=== PATIENT | female | born 1995 | race Caucasian/White ===

== ENCOUNTER 2017-12-21 06:49 | Outpatient (CLI) | payer OTHER ==
[2017-12-21] MEDS ORDERED: LACTATED RINGERS 1,000 ML IV SCH (07:30)
[2017-12-21] MEDS ORDERED: ACETAMINOPHEN IV (For NPO) 1,000 MG in EMPTY BAG 1 BAG IVPB STA (07:31)
[2017-12-21 08:07] VITALS: BP 111/57; PULSE 97; RESP 22; TEMP 98
--- NOTE | 2018-01-22 12:36 | P.MSEPDOC ---
Presenting Problems - Arrival Data Date of Arrival on Unit: 12/21/17 Time of Arrival on Unit: 06:49 Mode of Transport: Wheelchair - Complaint OB-Reason for Admission/Chief Complaint: Other Comment: Chills, N/V, YODER, Sunburn, possible sun posioning. Medical History - Information : 2 Para: 0 Term: 0 : 0 Abortions: Spontaneous or Elective: 1 Number of Living Children: 0 - Gestational Age Gestational Age by TERELL (wks/days): 29 Weeks and 0 Days Review of Systems - Review of Systems Constitutional: No problems Breast: No problems ENT: No problems Cardiovascular: No problems Respiratory: No problems Gastrointestinal: Pain Genitourinary: No problems Musculoskeletal: No problems Neurological: No problems Comment: sunburn, N/V, chills Vital Signs - Temperature Temperature: 98.0 F Temperature Source: Oral - Pulse Right Pulse Rate: 97 Pulse Assessment Method: Pulse Oximetry - Respirations Respiratory Rate: 22 Oxygen Delivery Method: Room Air O2 Sat by Pulse Oximetry: 100 - Blood Pressure Right Arm Blood Pressure: 111/57 Blood Pressure Mean: 75 Blood Pressure Source: Automatic Cuff Medical Screen Scoring (Pre) - Cervical Exam Dilation: Exam Deferred Effacement: Exam Deferred Membranes: Intact - Uterine Contractions Frequency: N/A Duration: N/A Intensity: N/A - Maternal Vital Signs Maternal Temperature: N/A Maternal Blood Pressure: N/A Signs of Preeclampsia: Headache = 1, Nausea/Vomiting = 1 Maternal Respirations: N/A - Pain Assessment Pain Location and Character: Generalized Pain Scale Used: Numeric (1 - 10) Pain Intensity: 6 Pain Management Goal: 0 Pain Description: *Acute, Burning, Tender, Throbbing Pain Frequency: Intermittent Pain Duration Units: Hours Pain Behavior: Vocalization Pharmacological Interventions: PRN Medication Non-Pharmacological Interventions: Darkened Room, Distraction, Relaxation Technique - Maternal Trauma Maternal Trauma: N/A - Assessment Baseline FHR: 150 Heart Rate - NICHD Category: Category I (Normal) = 0 NST: Reactive Position: N/A Station: N/A - Total Score Total Score (Pre): 2 - Level of Risk Level of Risk: Low (0-5) Physician Notification (Pre) - Physician Notified Physician Notified Date: 12/21/17 Physician Notified Time: 07:10 Physician/Practitioner Notifed:: Dr. Quiroz Spoke With: Dr. Quiroz New Order Received: Yes - Notification Comment Comment: orders for 1 liter fluid, Ovfirmev, and reactive NST. Report with update before sending to ER. Medical Screen Scoring (Post) - Cervical Exam Dilation: Exam Deferred Effacement: Exam Deferred Membranes: Intact - Uterine Contractions Duration: N/A Intensity: N/A - Maternal Vital Signs Maternal Temperature: N/A Maternal Blood Pressure: N/A Signs of Preeclampsia: N/A Maternal Respirations: N/A - Pain Assessment Pain Location and Character: Anterior, Medial, Head, Shoulder Pain Scale Used: Numeric (1 - 10) - Total Score Total Score (Post): 0 Disposition - Disposition Discharge Date: 12/21/17 Discharge Time: 09:20 I agree with the RN Medical Screening Exam: Yes Risk & Benefit of care provided described in d/c instruction: Yes Diagnosis: RELATED CONDITIONS, UNSPECIFIED, THIRD TRIMESTER
== END 2017-12-21 09:20 | disposition home or self-care (01) ==
LOC: FBPOP 06:49
PROVIDERS: ATTEND Obstetrics & Gynecology Obstetrics
DX: O26.93 Pregnancy related conditions, unspecified, third trimester (principal); Z3A.29 29 weeks gestation of pregnancy
CPT/HCPCS: 59025; 96360; 96361; 96367; G0463; J0131; 96376; 99214

== ENCOUNTER 2018-02-12 15:25 | Outpatient (CLI) | payer OTHER ==
[2018-02-12 16:07] VITALS: BP 118/73; PULSE 82; RESP 18; TEMP 99
--- NOTE | 2018-02-14 11:35 | P.MSEPDOC ---
Presenting Problems - Arrival Data Date of Arrival on Unit: 02/12/18 Time of Arrival on Unit: 15:43 Mode of Transport: Wheelchair - Complaint OB-Reason for Admission/Chief Complaint: Vaginal Bleeding Comment: pt arrived c/o bleeding times once when she strained to go o the bathroom . no active bleeding at this time Medical History - Information : 2 Para: 0 Term: 0 : 0 Abortions: Spontaneous or Elective: 1 Number of Living Children: 0 - Gestational Age Gestational Age by TERELL (wks/days): 36 Weeks and 4 Days Review of Systems - Review of Systems Constitutional: No problems Breast: No problems ENT: No problems Cardiovascular: No problems Respiratory: No problems Gastrointestinal: No problems Genitourinary: No problems Musculoskeletal: No problems Neurological: No problems Skin: No problems Vital Signs - Temperature Temperature: 99 F Temperature Source: Oral - Pulse Right Brachial Pulse Rate: 82 Pulse Assessment Method: Automatic Cuff - Respirations Respiratory Rate: 18 Oxygen Delivery Method: Room Air O2 Sat by Pulse Oximetry: 99 - Blood Pressure Right Arm Blood Pressure: 118/73 Blood Pressure Mean: 88 Blood Pressure Source: Automatic Cuff Medical Screen Scoring (Pre) - Cervical Exam Dilation: 0 cm = 0 Membranes: Intact - Uterine Contractions Frequency: N/A Duration: N/A Intensity: N/A - Maternal Vital Signs Maternal Temperature: N/A Maternal Blood Pressure: N/A Signs of Preeclampsia: N/A Maternal Respirations: N/A - Pain Assessment Pain Location and Character: Left, Hip Pain Scale Used: Numeric (1 - 10) Pain Intensity: 3 Pain Management Goal: 2 Pain Behavior: Vocalization Pain Aggravating Factors: Position, Walking - Total Score Total Score (Pre): 0 Medical Screen Scoring (Post) - Assessment Heart Rate: 140 Heart Rate - NICHD Category: Category I (Normal) = 0 NST: Reactive Position: N/A Station: N/A - Total Score Total Score (Post): 0 - Post Treatment Level of Risk Post Treatment Level of Risk: Low (0-5) Physician Notification (Post) - Physician Notified Physician Notified Date: 02/12/18 Physician Notified Time: 16:20 Spoke With: dr garcia New Order Received: Yes - Notification Comment Comment: may discharge to home Disposition - Disposition OB Disposition: Discharge to home Discharge Date: 02/12/18 Discharge Time: 16:28 I agree with the RN Medical Screening Exam: No Risk & Benefit of care provided described in d/c instruction: No Diagnosis: 36 WEEKS GESTATION OF
== END 2018-02-12 16:28 | disposition home or self-care (01) ==
LOC: FBPOP 15:25
PROVIDERS: ATTEND Obstetrics & Gynecology
DX: O46.93 Antepartum hemorrhage, unspecified, third trimester (principal); Z3A.36 36 weeks gestation of pregnancy
CPT/HCPCS: 59025; G0463; 99213

== ENCOUNTER 2018-03-08 15:41 | Inpatient (IN) | payer OTHER ==
[2018-03-16] MEDS ORDERED: LIDOCAINE 0.5% (PF) 5 MG/ML (50 ML SDV) SQ PRN (06:16)
[2018-03-16] MEDS ORDERED: METHYLERGONOVINE 0.2 MG/ML 1 ML AMP IM PRN (06:16)
[2018-03-16] MEDS ORDERED: TERBUTALINE 1 MG/ML VIAL SQ PRN (06:16)
[2018-03-16] MEDS ORDERED: CARBOPROST TROMETHAMINE 250 MCG/ML 1 ML AMP IM PRN (06:16)
[2018-03-16] MEDS ORDERED: OXYTOCIN 10 UNIT/ML 1 ML VIAL IM PRN (06:16)
[2018-03-16 06:26] VITALS: BMI 26.6
[2018-03-16 06:29] LABS: Basophils % (A) 0 %; Eosinophils # (A) 0.1 k/uL (0-0.7); Eosinophils % (A) 1 %; HCT 32.7 % (34.0-46.0); HGB 10.5 gm/dL (11.4-16.0); Hypochromasia Slight; Lymphocytes # (A) 1.9 k/uL (1.0-4.8); Lymphocytes % (A) 24 %; MCH 25.7 pg (25.0-35.0); MCV 80.3 fL (80.0-100.0); Mean Platelet Volume 7.2; Monocytes # (A) 0.5 k/uL (0-1.0); Monocytes % (A) 6 %; Neutrophils # (A) 5.4 k/uL (1.3-7.7); Neutrophils % (A) 66 %; Platelet Count 238 k/uL (150-450); RBC 4.08 m/uL (3.80-5.40); RDW 14.8 % (11.5-15.5); WBC 8.1 k/uL (3.8-10.6)
[2018-03-16] MEDS ORDERED: OXYTOCIN 20 UNITS/1000 ML NS 1,000 ML IV SCH ×2 (06:30→15:45)
[2018-03-16] MEDS: LACTATED RINGERS 1,000 ML IV SCH ×2 (06:33→11:00)
[2018-03-16] MEDS ORDERED: BUTORPHANOL 1 MG/ML 1 ML VIAL IV PRN (08:31)
--- NOTE | 2018-03-16 08:36 | P.HPOB ---
History of Present Illness H&P Date: 03/16/18 Chief Complaint: 41 and one sevenths weeks, induction The patient is a 23-year-old 2 para 0010 admitted at 41 and one sevenths weeks as established by last menstrual period and confirmed by 19 week ultrasound. She is admitted with a relatively favorable cervix for postdates induction of labor. testing since her due date has been reassuring as has the amniotic fluid index. Her has been otherwise entirely uncomplicated and group B strep status is negative. On labor and delivery, all signs are reassuring with excellent accelerations. Obstetrical history: 2 para 0010 with one early miscarriage not requiring D&C. Current statistics are listed in history present illness. EDC of 03/08/2018 was established by last menstrual period and confirmed by 18 week ultrasound. Laboratory workup done traits of blood type of O+ with a negative antibody screen. Rubella status is immune. Remainder of the laboratory workup was within normal limits. One hour Glucola was normal and group B strep status is negative. Gynecologic history: Unremarkable with no history of any infections to include STDs. Review of Systems Review of systems is confined to history of present illness. Past Medical History Past Medical History: Asthma Additional Past Medical History / Comment(s): anemia History of Any Multi-Drug Resistant Organisms: None Reported Past Surgical History: No Surgical Hx Reported Past Anesthesia/Blood Transfusion Reactions: No Reported Reaction Past Psychological History: No Psychological Hx Reported Smoking Status: Former smoker Past Alcohol Use History: None Reported Past Drug Use History: None Reported - Past Family History Father Family Medical History: Hypertension Additional Family Medical History / Comment(s): lung cancer. Medications and Allergies Home Medications Medication Instructions Recorded Confirmed Type Albuterol Inhaler [Ventolin Hfa 90 mcg PO DIRECTED 12/21/17 03/16/18 History Inhaler] EPINEPHrine (Auto Inject) [Epipen] 0.3 mg SQ DIRECTED PRN 12/21/17 03/16/18 History Ferrous Sulfate [Iron] 325 mg PO DAILY 12/21/17 03/16/18 History Pnv 11/Iron Fum/Folic Acid/Om3 1 cap PO DAILY 12/21/17 03/16/18 History [Virt-Rudy Dha Softgel] Allergies Allergy/AdvReac Type Severity Reaction Status Date / Time bee venom protein (honey bee) Allergy Anaphylaxis Verified 09/26/18 06:14 amoxicillin [From Augmentin] AdvReac Itching Verified 03/16/18 06:14 clavulanic acid AdvReac Itching Verified 03/16/18 06:14 [From Augmentin] Exam Vital Signs Temp Pulse Resp BP Pulse Ox 03/16/18 06:14 97.5 F L 98 18 121/75 99 Intake and Output 03/15/18 03/16/18 03/16/18 22:59 06:59 14:59 Other: Weight 70.307 kg In general, this is a well-developed, well-nourished white female in no acute distress. Her heart has a regular rhythm and rate without murmur. Her lungs are clear to auscultation bilaterally in all lassiter. Her abdomen is gravid, nondistended, is soft, nontender, and without any palpable masses aside from the uterine fundus. Her extremities are without any cyanosis, clubbing, or edema and are nontender to palpation bilaterally. Digital cervical examination on straights her cervix to be 2-37 m dilated, 60% effaced, the vertex in presentation at -2 station. Artificial rupture of membranes is carried out demonstrating clear fluid. Results Result Diagrams: 03/16/18 06:10 Abnormal Lab Results - Last 24 Hours (Table) 03/16/18 Range/Units 06:10 Hgb 10.5 L (11.4-16.0) gm/dL Hct 32.7 L (34.0-46.0) % Assessment and Plan (1) Post-dates Current Visit: Yes Status: Acute Code(s): O48.0 - POST-TERM SNOMED Code(s): 80295556 Plan: The patient is admitted for postdates induction of labor with all signs reassuring. As noted, her has been uncomplicated. She has had Pitocin augmentation started and artificial rupture of membranes carried out demonstrating clear fluid. She will have close maternal and surveillance and expectant management will be practiced. She is a good candidate for either IV or epidural analgesia, whichever she may choose.
[2018-03-16] MEDS ORDERED: fentaNYL (PF) 50 MCG/ML 5 ML AMP ONE (10:56)
[2018-03-16] MEDS ORDERED: SODIUM CHLORIDE 0.9% 100 ML BAG ONE (10:56)
[2018-03-16] MEDS ORDERED: ROPIVACAINE 5MG/ML 20ML VIAL ONE (10:56)
[2018-03-16] MEDS ORDERED: HYDROcodone/APAP 5-325MG 1 EACH TAB PO PRN (15:31)
[2018-03-16] MEDS ORDERED: HYDROcodone/APAP 7.5-325MG 1 EACH TAB PO PRN (15:31)
[2018-03-16] MEDS ORDERED: HYDROCORTISONE 2.5% RECTAL CREAM 30 GM TUBE RECTAL PRN (15:31)
[2018-03-16] MEDS ORDERED: diphenhydrAMINE 50 MG CAP PO PRN (15:31)
[2018-03-16] MEDS ORDERED: ZOLPIDEM 5 MG TAB PO PRN (15:31)
[2018-03-16] MEDS ORDERED: diphenhydrAMINE 50 MG/ML 1 ML VIAL IVP PRN ×2 (15:31)
[2018-03-16] MEDS ORDERED: BENZOCAINE/MENTHOL SPRAY 1 GM/SPRAY AEROSOL TOPICAL PRN (15:31)
[2018-03-16] MEDS ORDERED: diphenhydrAMINE 25 MG CAP PO PRN (15:31)
[2018-03-16] MEDS ORDERED: SIMETHICONE 80 MG CHEWABLE PO PRN (15:31)
[2018-03-16] MEDS ORDERED: WITCH HAZEL 1 EACH MED..PAD TOPICAL PRN (15:31)
[2018-03-16] MEDS ORDERED: LANOLIN CREAM 5 GM TUBE TOPICAL PRN (15:31)
--- NOTE | 2018-03-16 15:34 | P.PROBDLV ---
Vaginal Delivery Note - . Vaginal Delivery Note: The patient is a 23-year-old 2 para 0010 admitted at 41 and one sevenths weeks by good dating parameters. She is admitted for induction of labor with favorable cervix. Her has been uncomplicated and group B strep status is negative. On labor and delivery, she had Pitocin started followed by artificial rupture of membranes demonstrating clear fluid. She made good progress through the latent phase of labor and had an epidural catheter placed for analgesia. She then progressed fairly quickly through the active phase of labor to complete and 0 station. She pushed over approximately 50 minutes to a normal spontaneous vaginal delivery of a viable 8 lbs. 0 oz. baby boy with Apgars of 8 at 1 minute and 9 at 5 minutes delivered in the right occiput anterior position. The placenta was delivered spontaneously, intact, and grossly normal with a grossly normal, centrally inserted three-vessel cord. There was a second-degree midline perineal laceration which was noted and was repaired in standard fashion using 3-0 chromic catgut without difficulty. Estimated blood loss for the case was approximately 400 mL. There were no complications. All sponge, instrument, and needle counts were correct. Both mother and are resting comfortably in recovery.
[2018-03-16] MEDS: IBUPROFEN 600 MG TAB PO PRN (17:52)
[2018-03-16] MEDS: SENNOSIDES-DOCUSATE SODIUM 1 EACH TAB PO SCH (20:15)
[2018-03-16] MEDS: ACETAMINOPHEN TAB 325 MG TAB PO PRN (22:00)
[2018-03-17] MEDS: IBUPROFEN 600 MG TAB PO PRN ×2 (04:39→11:42)
[2018-03-17] MEDS: SENNOSIDES-DOCUSATE SODIUM 1 EACH TAB PO SCH (08:00)
--- NOTE | 2018-03-17 09:03 | P.DS ---
Providers Date of admission: 03/16/18 05:59 Expected date of discharge: 03/17/18 Attending physician: Anthony Rodriguez Primary care physician: Stated None - Discharge Diagnosis(es) (1) Post-dates Current Visit: Yes Status: Acute (2) Normal spontaneous vaginal delivery Current Visit: Yes Status: Acute Hospital Course: The patient is a 23-year-old 2 para 0010 admitted at 41 and one sevenths weeks by good dating parameters perches admitted for postdates induction of labor. On labor and delivery, she had Pitocin started and underwent artificial rupture of membranes demonstrating clear fluid. She made progress and had an epidural catheter placed and then progressed quickly through the active phase of labor to complete. She pushed to a normal spontaneous vaginal delivery of a viable 8 lbs. 0 oz. baby boy with Apgars of 8 at 1 minute and 9 at 5 minutes. Her course was unremarkable vital signs remained stable and her temperature was afebrile throughout. She was deemed stable for discharge on day #1 was discharged home to follow- up in the office in 6 weeks routinely. Discharge instructions included calling for any significantly increased bleeding or foul-smelling lochia, significantly increased fever or abdominal pain, perineal complaints, breast complaints, or anything else that concerned her. She was additionally instructed to have nothing in the vagina for at least 6 weeks time to include intercourse. She understood her instructions and agrees to follow up as noted above. Discharge medications included only [id number] analgesic pain medications as well as continued vitamins as she has opted to breast-feed. Maternal blood type is O+ and rubella status is immune. Procedures: #1. Pitocin induction #2. Artificial rupture of membranes #3. Epidural analgesia #4. Normal spontaneous vaginal delivery #5. Repair of perineal laceration Patient Condition at Discharge: Stable Plan - Discharge Summary New Discharge Prescriptions: No Action Pnv 11/Iron Fum/Folic Acid/Om3 [Virt-Rudy Dha Softgel] 1 cap PO DAILY Ferrous Sulfate [Iron] 325 mg PO DAILY EPINEPHrine (Auto Inject) [Epipen] 0.3 mg SQ DIRECTED PRN PRN Reason: Anaphylaxis Albuterol Inhaler [Ventolin Hfa Inhaler] 90 mcg PO DIRECTED Discharge Medication List Albuterol Inhaler [Ventolin Hfa Inhaler] 90 mcg PO DIRECTED 12/21/17 [History ] EPINEPHrine (Auto Inject) [Epipen] 0.3 mg SQ DIRECTED PRN 12/21/17 [History] Ferrous Sulfate [Iron] 325 mg PO DAILY 12/21/17 [History] Pnv 11/Iron Fum/Folic Acid/Om3 [Virt-Rudy Dha Softgel] 1 cap PO DAILY 12/21/17 [ History] Follow up Appointment(s)/Referral(s): Anthony Rodriguez MD [STAFF PHYSICIAN] - 6 Weeks Discharge Disposition: HOME SELF-CARE
[2018-03-17 10:47] VITALS: RESP 18
[2018-03-17] MEDS: ACETAMINOPHEN TAB 325 MG TAB PO PRN (16:34)
[2018-03-17 18:09] VITALS: BP 116/73; PULSE 100; TEMP 98.5
== END 2018-03-17 17:00 | disposition home or self-care (01) | DRG 775 ==
LOC: 4FBP 03-16 05:59
PROVIDERS: ADMIT Obstetrics & Gynecology; ATTEND Obstetrics & Gynecology
PROC: 10E0XZZ Delivery of Products of Conception, External Approach (ICD-10-PCS; principal; 2018-03-16)
PROC: 0KQM0ZZ Repair Perineum Muscle, Open Approach (ICD-10-PCS; 2018-03-16)
PROC: 3E033VJ Introduction of Other Hormone into Peripheral Vein, Percutaneous Approach (ICD-10-PCS; 2018-03-16)
PROC: 10907ZC Drainage of Amniotic Fluid, Therapeutic from Products of Conception, Via Natural or Artificial Opening (ICD-10-PCS; 2018-03-16)
PROC: 00HU33Z Insertion of Infusion Device into Spinal Canal, Percutaneous Approach (ICD-10-PCS; 2018-03-16)
PROC: 3E0R3BZ Introduction of Anesthetic Agent into Spinal Canal, Percutaneous Approach (ICD-10-PCS; 2018-03-16)
DX: O48.0 Post-term pregnancy (principal); D64.9 Anemia, unspecified; O99.02 Anemia complicating childbirth; O70.1 Second degree perineal laceration during delivery; Z37.0 Single live birth; Z3A.41 41 weeks gestation of pregnancy; Z79.899 Other long term (current) drug therapy; O99.52 Diseases of the respiratory system complicating childbirth; J45.909 Unspecified asthma, uncomplicated; Z87.891 Personal history of nicotine dependence; Z88.0 Allergy status to penicillin; Z88.8 Allergy status to other drugs, medicaments and biological substances; Z91.030 Bee allergy status; Z82.49 Family history of ischemic heart disease and other diseases of the circulatory system; Z80.1 Family history of malignant neoplasm of trachea, bronchus and lung
CPT/HCPCS: 85025; 86850; 86900; 86901

== ENCOUNTER 2018-03-10 23:58 | Outpatient (CLI) | payer OTHER ==
[2018-03-11 00:41] LABS: Appearance,Urine Cloudy (Clear); Bacteria,Urine Rare /hpf; Bilirubin,Urine Negative (Negative); Blood,Urine Negative (Negative); Color,Urine Light Yellow; Glucose,Urine (UA) Negative (Negative); Ketones,Urine Negative (Negative); Leukocyte Esterase,Urine Negative (Negative); Nitrite,Urine Negative (Negative); Protein,Urine Negative (Negative); Specific Gravity,Urine 1.009 (1.001-1.035); Squamous Epithelial Cell,Urine 9 /hpf (0-4); Urobilinogen,Urine <2.0 mg/dL (<2.0); WBC,Urine 2 /hpf (0-5)
[2018-03-11 01:06] VITALS: BP 125/82; PULSE 99; RESP 16; TEMP 98
--- NOTE | 2018-04-22 07:55 | P.MSEPDOC ---
Presenting Problems - Arrival Data Date of Arrival on Unit: 03/10/18 Time of Arrival on Unit: 23:58 Mode of Transport: Wheelchair - Complaint OB-Reason for Admission/Chief Complaint: Signs/Symptoms UTI Comment: back pain, dysuria, increase in frequency, feels that bladder isn't empty, Medical History - Information : 2 Para: 0 Term: 0 : 0 Abortions: Spontaneous or Elective: 0 Number of Living Children: 0 - Gestational Age Gestational Age by TERELL (wks/days): 40 Weeks and 3 Days Review of Systems - Review of Systems Constitutional: No problems Breast: No problems ENT: No problems Cardiovascular: No problems Respiratory: No problems Gastrointestinal: No problems Genitourinary: Dysuria, Increased frequency Musculoskeletal: No problems Neurological: No problems Skin: No problems Vital Signs - Temperature Temperature: 98.0 F Temperature Source: Oral - Pulse Right Pulse Rate: 99 Pulse Assessment Method: Pulse Oximetry - Respirations Respiratory Rate: 16 O2 Sat by Pulse Oximetry: 98 - Blood Pressure Right Arm Blood Pressure: 125/82 Blood Pressure Mean: 96 Blood Pressure Source: Automatic Cuff Medical Screen Scoring (Pre) - Cervical Exam Dilation: 1-3 cm = 1 Effacement: More than 50% = 2 - Uterine Contractions Frequency: > or = 36 weeks =2 Duration: > 40 seconds = 2 Intensity: N/A - Maternal Vital Signs Maternal Temperature: N/A Maternal Blood Pressure: N/A Signs of Preeclampsia: N/A Maternal Respirations: N/A - Pain Assessment Pain Location and Character: Back Pain Scale Used: Numeric (1 - 10) Pain Intensity: 6 Pain Description: *Acute, Aching, Sore, Stabbing Pain Duration: 3 Pain Duration Units: Hours Pain Behavior: Vocalization Pain Aggravating Factors: None Pharmacological Interventions: PRN Medication - Maternal Trauma Maternal Trauma: N/A - Assessment Baseline FHR: 115 Heart Rate - NICHD Category: Category I (Normal) = 0 NST: Reactive Position: N/A - Total Score Total Score (Pre): 7 - Level of Risk Level of Risk: Medium (6-9) Physician Notification (Pre) - Physician Notified Physician Notified Date: 03/11/18 Physician Notified Time: 00:51 Physician/Practitioner Notifed:: Dr De La Cruz - Notification Comment Comment: reported on pts s/sx UTI, UA results, vital. reported on low baseline, post dates, irreg cntrx, SVE unchanged from appt last week, pt states she has scheduled appt in am at 1030. orders to d/c home with instructions, return with worsening sx, keep appt in office in am Disposition - Disposition OB Disposition: Discharge to home Discharge Date: 03/11/18 Discharge Time: 23:58 I agree with the RN Medical Screening Exam: Yes Risk & Benefit of care provided described in d/c instruction: Yes Diagnosis: ENCOUNTER FOR FULL-TERM UNCOMPLICATED DELIVERY
== END 2018-03-11 01:00 | disposition home or self-care (01) ==
LOC: FBPOP 23:58
PROVIDERS: ATTEND Obstetrics & Gynecology
DX: O80 Encounter for full-term uncomplicated delivery (principal); Z3A.40 40 weeks gestation of pregnancy; Z37.9 Outcome of delivery, unspecified
CPT/HCPCS: 59025; 81001; G0463; 99213

== ENCOUNTER 2018-08-10 16:23 | Emergency (ER) | payer OTHER ==
[2018-08-10 16:46] VITALS: RESP 18; TEMP 97.7
--- NOTE | 2018-08-10 17:05 | XR ---
EXAMINATION TYPE: XR chest 2V DATE OF EXAM: 08/10/2018 COMPARISON: NONE HISTORY: Cough and congestion TECHNIQUE: Frontal and lateral views of the chest are obtained. FINDINGS: Heart and mediastinum are normal. Lungs are clear. Diaphragm is normal. Bony thorax appear s normal. IMPRESSION: Normal chest. No change.
[2018-08-10] MEDS ORDERED: SODIUM CHLORIDE 0.9% 500 ML 500 ML IV STA (17:16)
[2018-08-10] MEDS ORDERED: ALBUTEROL NEBULIZED 2.5 MG/3 ML INHALATION STA (17:16)
[2018-08-10] MEDS ORDERED: methylPREDNISolone SOD SUCCI 125 MG/2 ML VIAL IV STA (17:16)
--- NOTE | 2018-08-10 17:24 | ED ---
General Adult HPI - General Chief complaint: Upper Respiratory Infection Stated complaint: cough Time Seen by Provider: 08/10/18 17:01 Source: patient, RN notes reviewed Mode of arrival: ambulatory Limitations: no limitations - History of Present Illness Initial comments: Chief complaint history of present illness a 23-year-old female with a history of asthma. The patient reports that her problems started 6 days ago. Her complaint is productive cough with wheezing. 3 days ago she was seen in urgent care placed on a Z-Nathan for 5 days. She has 1 day left. Also Tessalon Perles and a Medrol Dosepak. The patient reports she continues to cough and wheeze. The last updraft was 2 hours ago at home. Denies fever. - Related Data Home Medications Medication Instructions Recorded Confirmed Albuterol Inhaler [Ventolin Hfa 1 - 2 puff PO Q4-6H PRN 12/21/17 08/10/18 Inhaler] Azithromycin [Zithromax Z-pack] See Taper PO DIRECTED 08/10/18 08/10/18 Benzonatate [Tessalon Perles] 100 mg PO TID 08/10/18 08/10/18 Norethindrone [Danica] 0.35 mg PO HS 08/10/18 08/10/18 methylPREDNISolone [Medrol Dose See Taper PO DIRECTED 08/10/18 08/10/18 Pack] Previous Rx's Medication Instructions Recorded Acetaminophen/Codeine Liquid 5 ml PO Q6H PRN 3 Days #60 ml 08/10/18 [Tylenol w/codeine Elixir] Allergies Allergy/AdvReac Type Severity Reaction Status Date / Time bee venom protein (honey bee) Allergy Anaphylaxis Verified 08/10/18 17:37 amoxicillin [From Augmentin] AdvReac Itching Verified 08/10/18 17:37 clavulanic acid AdvReac Itching Verified 08/10/18 17:37 [From Augmentin] Review of Systems ROS Statement: Those systems with pertinent positive or pertinent negative responses have been documented in the HPI. Review of systems. Patient denies any headache no visual acuity changes denies any sore throat or earache. No stiff neck. Did not complain of any chest pain she does have repeated persistent coughing. Slight wheeze. Patient states she did cough up a greenish brown piece of phlegm earlier. Denies abdominal pain no nausea no vomiting no neuro deficits. All systems are reviewed. The patient's past medical problems significant for asthma. Patient has history of anemia has not had any transfusions. Her baby about 5 months old. She is no longer breast-feeding. Patient denies any chest pain at this time. The patient denies any surgeries. Family history no cancers. Patient has ALLERGIES to Augmentin. Patient actually states she can take amoxicillin and she has taken it after having any recent ALLERGIC reaction to Augmentin. She states she is ALLERGIC to clavulanate. Patient denies smoking. Drink alcohol very rarely socially. Other ALLERGIES include be venom. ROS Other: All systems not noted in ROS Statement are negative. Past Medical History Past Medical History: Asthma Additional Past Medical History / Comment(s): anemia History of Any Multi-Drug Resistant Organisms: None Reported Past Surgical History: No Surgical Hx Reported Past Anesthesia/Blood Transfusion Reactions: No Reported Reaction Past Psychological History: No Psychological Hx Reported Smoking Status: Former smoker Past Alcohol Use History: None Reported Past Drug Use History: None Reported - Past Family History Father Family Medical History: Hypertension Additional Family Medical History / Comment(s): lung cancer. General Exam - General Exam Comments Initial Comments: General: The patient is awake and alert, frequent coughing and mild wheeze. Vital signs temp 97.7 pulse 92 respiratory rate 18 pulse ox 94% on room air blood pressure 145/97. in no distress, and does not appear acutely ill. Eye: Pupils are equal, round and reactive to light, extra-ocular movements are intact ; there is normal conjunctiva bilaterally. No signs of icterus. Ears, nose, mouth and throat: There are moist mucous membranes and no oral lesions. Neck: The neck is supple, there is no tenderness no anterior cervical lymphadenopathy. or JVD. Cardiovascular: There is a regular rate and rhythm. No murmur, rub or gallop is appreciated. Respiratory: Lungs are clear to auscultation, increased respiratory rate, frequent dry coughing. Mild wheeze appreciated., breath sounds are equal. Gastrointestinal: Soft, non-distended, non-tender abdomen without masses or organomegaly noted. There is no rebound or guarding present. No CVA tenderness. Bowel sounds are unremarkable. Back: Denies back discomfort Musculoskeletal: Normal ROM, no tenderness, Neurological: Denies any neuro deficits. Skin: Skin is warm and dry and no rashes or lesions are noted. Psychiatric: Cooperative, Limitations: no limitations Course Vital Signs 08/10/18 08/10/18 08/10/18 16:43 17:23 17:39 Temperature 97.7 F Pulse Rate 92 92 90 Respiratory 18 Rate Blood Pressure 145/97 O2 Sat by Pulse 94 L Oximetry 08/10/18 18:44 Temperature Pulse Rate 77 Respiratory 18 Rate Blood Pressure 114/62 O2 Sat by Pulse 100 Oximetry Medical Decision Making - Medical Decision Making Medical decision making; a 23-year-old female here with asthma attack is been persistent. She was treated for an upper respiratory tract infection with a Z- Nathan, Kameron Ritchie on a Medrol Dosepak for the past 3 days. Repeated coughing persists has given her several updrafts at home without much relief. Chest x-ray was done and reviewed by radiologist Dr. Cherry. His final report is; no acute cardiopulmonary pathology appreciated. Also states unchanged from previous chest x-ray. Labs show white count of 9 hemoglobin 13 hematocrit of 40. Potassium 4.2 with a BUN 13 creatinine 0.83 to GFR greater than 90. Glucose 87. The patient received IV fluids, albuterol updraft, and site Medrol 125 IV push. Patient states she's fairly significantly better. But she still has episodes of coughing. The patient be placed on Pepcid, we discussed how I can help decrease reflux problems and she states she has had reflux problems the past. She'll also be given a small amount of Tylenol with codeine elixir to help suppress the cough. - Lab Data Result diagrams: 08/10/18 17:39 08/10/18 17:39 Lab Results 08/10/18 08/10/18 Range/Units 17:39 17:39 WBC 9.0 (3.8-10.6) k/uL RBC 5.36 (3.80-5.40) m/uL Hgb 13.2 (11.4-16.0) gm/dL Hct 40.4 (34.0-46.0) % MCV 75.3 L (80.0-100.0) fL MCH 24.7 L (25.0-35.0) pg MCHC 32.8 (31.0-37.0) g/dL RDW 16.1 H (11.5-15.5) % Plt Count 330 (150-450) k/uL Neutrophils % 75 % Lymphocytes % 18 % Monocytes % 5 % Eosinophils % 0 % Basophils % 0 % Neutrophils # 6.7 (1.3-7.7) k/uL Lymphocytes # 1.6 (1.0-4.8) k/uL Monocytes # 0.5 (0-1.0) k/uL Eosinophils # 0.0 (0-0.7) k/uL Basophils # 0.0 (0-0.2) k/uL Anisocytosis Slight Microcytosis Slight Sodium 142 (137-145) mmol/L Potassium 4.2 (3.5-5.1) mmol/L Chloride 107 (98-107) mmol/L Carbon Dioxide 23 (22-30) mmol/L Anion Gap 12 mmol/L BUN 13 (7-17) mg/dL Creatinine 0.83 (0.52-1.04) mg/dL Est GFR (CKD-EPI)AfAm >90 (>60 ml/min/1.73 sqM) Est GFR (CKD-EPI)NonAf >90 (>60 ml/min/1.73 sqM) Glucose 87 (74-99) mg/dL Calcium 10.0 (8.4-10.2) mg/dL Disposition Clinical Impression: Bronchial asthma Disposition: HOME SELF-CARE Condition: Fair Instructions (If sedation given, give patient instructions): Upper Respiratory Infection (ED), Asthma (ED) Additional Instructions: Continue with home medications, finish Z-Nathan, take Pepcid 1 tablet daily, over- the-counter Pepcid. Take 1 teaspoon of Tylenol with Codeine every 4-6 hours for cough. Increase fluids. Continue with home updraft. Return emergency room or follow-up with family doctor cough persists Prescriptions: Acetaminophen/Codeine Liquid [Tylenol w/codeine Elixir] 5 ml PO Q6H PRN 3 Days # 60 ml PRN Reason: As needed for cough Is patient prescribed a controlled substance at d/c from ED?: Yes When asked, does pt state using other controlled substances?: No If prescribed controlled substance>3 days was MAPS reviewed?: No If opioid is for acute pain is fill amount 7 days or less?: Yes If Rx opioid, was Start Talking consent form obtained?: No Referrals: Juan José Hernandez MD [Primary Care Provider] - 1-2 days Time of Disposition: 18:58
[2018-08-10 17:51] LABS: Anisocytosis Slight; Basophils % (A) 0 %; Eosinophils % (A) 0 %; HCT 40.4 % (34.0-46.0); HGB 13.2 gm/dL (11.4-16.0); Lymphocytes # (A) 1.6 k/uL (1.0-4.8); Lymphocytes % (A) 18 %; MCH 24.7 pg (25.0-35.0); MCHC 32.8 g/dL (31.0-37.0); MCV 75.3 fL (80.0-100.0); Mean Platelet Volume 6.7; Microcytosis Slight; Monocytes # (A) 0.5 k/uL (0-1.0); Monocytes % (A) 5 %; Neutrophils # (A) 6.7 k/uL (1.3-7.7); Neutrophils % (A) 75 %; Platelet Count 330 k/uL (150-450); RBC 5.36 m/uL (3.80-5.40); RDW 16.1 % (11.5-15.5)
[2018-08-10 18:02] LABS: Anion Gap 12 mmol/L; Blood Urea Nitrogen 13 mg/dL (7-17); Carbon Dioxide 23 mmol/L (22-30); Chloride 107 mmol/L (98-107); Glucose 87 mg/dL (74-99); Potassium 4.2 mmol/L (3.5-5.1); Sodium 142 mmol/L (137-145)
[2018-08-10 18:44] VITALS: BP 114/62; PULSE 77
[2018-08-10] MEDS ORDERED: ACET/COD 240MG/24MG LIQ 10 ML SYRG PO ONE (18:53)
[2018-08-10] MEDS ORDERED: FAMOTIDINE 20 MG TAB PO STA (18:54)
== END 2018-08-10 19:13 | disposition home or self-care (01) ==
LOC: EC 16:23
DX: J45.909 Unspecified asthma, uncomplicated (principal); Z87.891 Personal history of nicotine dependence; Z79.3 Long term (current) use of hormonal contraceptives; Z79.52 Long term (current) use of systemic steroids; Z79.899 Other long term (current) drug therapy; Z91.030 Bee allergy status; Z88.0 Allergy status to penicillin
CPT/HCPCS: 99285; 96374; 96361; 36415; 94640; 80048; 85025; 71046; J2930

== ENCOUNTER 2019-02-06 10:29 | Emergency (ER) | payer OTHER ==
[2019-02-06 10:54] VITALS: BP 118/84; PULSE 67; RESP 18; TEMP 98.9
[2019-02-06] MEDS ORDERED: SODIUM CHLORIDE 0.9% 1,000 ML IV STA (11:20)
[2019-02-06] MEDS ORDERED: FAMOTIDINE 20 MG/2 ML VIAL IV STA (11:23)
--- NOTE | 2019-02-06 11:23 | ED ---
General Adult HPI - General Chief complaint: Abdominal Pain Stated complaint: abdominal pain Time Seen by Provider: 02/06/19 10:47 Source: patient, RN notes reviewed Mode of arrival: ambulatory Limitations: no limitations - History of Present Illness Initial comments: 24-year-old female presents to the emergency department for a chief complaint of right upper quadrant abdominal pain. States this has been ongoing since she had her child about one year ago however worsened today. States the pain is in her right upper quadrant. Denies any lower abdominal pain. States she has been nauseous and vomiting. Patient has also had some diarrhea. Denies fevers or chills. Patient does admit that certain foods make this worse such as fried foods. Patient has no other complaints at this time including shortness of breath, chest pain, headache, or visual changes. - Related Data Home Medications Medication Instructions Recorded Confirmed Acetaminophen Tab [Tylenol Tab] 1,000 mg PO Q6H PRN 02/06/19 02/06/19 Bismuth Subsalicylate [Kaopectate] 262 mg PO ONCE PRN 02/06/19 02/06/19 Previous Rx's Medication Instructions Recorded Famotidine [Pepcid] 20 mg PO BID #30 tablet 02/06/19 Ondansetron [Zofran ODT] 4 mg PO Q8HR PRN #15 tab 02/06/19 Allergies Allergy/AdvReac Type Severity Reaction Status Date / Time bee venom protein (honey bee) Allergy Anaphylaxis Verified 02/06/19 11:13 amoxicillin [From Augmentin] AdvReac Itching Verified 02/06/19 11:13 clavulanic acid AdvReac Itching Verified 02/06/19 11:13 [From Augmentin] Review of Systems ROS Statement: Those systems with pertinent positive or pertinent negative responses have been documented in the HPI. ROS Other: All systems not noted in ROS Statement are negative. Past Medical History Past Medical History: Asthma Additional Past Medical History / Comment(s): anemia History of Any Multi-Drug Resistant Organisms: None Reported Past Surgical History: No Surgical Hx Reported Past Anesthesia/Blood Transfusion Reactions: No Reported Reaction Past Psychological History: No Psychological Hx Reported Smoking Status: Former smoker Past Alcohol Use History: Occasional Past Drug Use History: None Reported - Past Family History Father Family Medical History: Hypertension Additional Family Medical History / Comment(s): lung cancer. General Exam Limitations: no limitations General appearance: alert, in no apparent distress Head exam: Present: atraumatic, normocephalic, normal inspection Eye exam: Present: normal appearance, PERRL, EOMI. Absent: scleral icterus, conjunctival injection, periorbital swelling ENT exam: Present: normal exam, mucous membranes moist Neck exam: Present: normal inspection, full ROM. Absent: tenderness, meningismus, lymphadenopathy Respiratory exam: Present: normal lung sounds bilaterally. Absent: respiratory distress, wheezes, rales, rhonchi, stridor Cardiovascular Exam: Present: regular rate, normal rhythm, normal heart sounds. Absent: systolic murmur, diastolic murmur, rubs, gallop, clicks GI/Abdominal exam: Present: soft, tenderness (tenderness RUQ, + lemons sign), normal bowel sounds. Absent: distended, guarding, rebound, rigid Neurological exam: Present: alert Psychiatric exam: Present: normal affect, normal mood Course Vital Signs 02/06/19 10:51 Temperature 98.9 F Pulse Rate 67 Respiratory 18 Rate Blood Pressure 118/84 O2 Sat by Pulse 97 Oximetry Medical Decision Making - Medical Decision Making 24-year-old female presents to the emergency department for a chief complaint of upper abdominal pain. Patient states this is worse in the right upper quadrant. States this has been ongoing since she had the child a year ago but worsened in the past day. Patient has vomited twice. On exam she does have right upper quadrant tenderness with a positive Lemons sign. No lower abdominal tenderness whatsoever. No suprapubic tenderness or left upper quadrant tenderness. CBC and CMP are unremarkable. Urine will be cultured. Right upper quadrant ultrasound is unremarkable however there is on a graphic Lemons sign. Patient feeling much better at this time after receiving Pepcid Toradol and Zofran. At this time I recommend following up with surgery. Patient prefers to see a female surgeon so will be given Dr. Pedersen's name. I during this is likely related to the gallbladder however patient will be put on Pepcid to cover for any gastritis as well. Patient will return here if she has any worsening sy mptoms. - Lab Data Result diagrams: 02/06/19 11:25 02/06/19 11:25 Lab Results 02/06/19 02/06/19 02/06/19 Range/Units 11:25 11:25 11:25 WBC 8.6 (3.8-10.6) k/uL RBC 4.92 (3.80-5.40) m/uL Hgb 12.8 (11.4-16.0) gm/dL Hct 38.7 (34.0-46.0) % MCV 78.7 L (80.0-100.0) fL MCH 25.9 (25.0-35.0) pg MCHC 32.9 (31.0-37.0) g/dL RDW 16.1 H (11.5-15.5) % Plt Count 247 (150-450) k/uL Neutrophils % 81 % Lymphocytes % 13 % Monocytes % 3 % Eosinophils % 1 % Basophils % 0 % Neutrophils # 7.0 (1.3-7.7) k/uL Lymphocytes # 1.1 (1.0-4.8) k/uL Monocytes # 0.3 (0-1.0) k/uL Eosinophils # 0.1 (0-0.7) k/uL Basophils # 0.0 (0-0.2) k/uL Anisocytosis Slight Sodium 141 (137-145) mmol/L Potassium 4.6 (3.5-5.1) mmol/L Chloride 108 H (98-107) mmol/L Carbon Dioxide 21 L (22-30) mmol/L Anion Gap 12 mmol/L BUN 9 (7-17) mg/dL Creatinine 0.71 (0.52-1.04) mg/dL Est GFR (CKD-EPI)AfAm >90 (>60 ml/min/1.73 sqM) Est GFR (CKD-EPI)NonAf >90 (>60 ml/min/1.73 sqM) Glucose 83 (74-99) mg/dL Calcium 9.6 (8.4-10.2) mg/dL Total Bilirubin 0.8 (0.2-1.3) mg/dL AST 26 (14-36) U/L ALT 18 (9-52) U/L Alkaline Phosphatase 55 (38-126) U/L Total Protein 8.9 H (6.3-8.2) g/dL Albumin 4.7 (3.5-5.0) g/dL Amylase 45 (30-110) U/L Lipase 60 (23-300) U/L Urine Color Urine Appearance (Clear) Urine pH (5.0-8.0) Ur Specific [place] (1.001-1.035) Urine Protein (Negative) Urine Glucose (UA) (Negative) Urine Ketones (Negative) Urine Blood (Negative) Urine Nitrite (Negative) Urine Bilirubin (Negative) Urine Urobilinogen (<2.0) mg/dL Ur Leukocyte Esterase (Negative) Urine RBC (0-5) /hpf Urine WBC (0-5) /hpf Ur Squamous Epith Cells (0-4) /hpf Urine Bacteria (None) /hpf Urine Mucus (None) /hpf Urine HCG, Qual Not Detected (Not Detectd) 02/06/19 Range/Units 11:25 WBC (3.8-10.6) k/uL RBC (3.80-5.40) m/uL Hgb (11.4-16.0) gm/dL Hct (34.0-46.0) % MCV (80.0-100.0) fL MCH (25.0-35.0) pg MCHC (31.0-37.0) g/dL RDW (11.5-15.5) % Plt Count (150-450) k/uL Neutrophils % % Lymphocytes % % Monocytes % % Eosinophils % % Basophils % % Neutrophils # (1.3-7.7) k/uL Lymphocytes # (1.0-4.8) k/uL Monocytes # (0-1.0) k/uL Eosinophils # (0-0.7) k/uL Basophils # (0-0.2) k/uL Anisocytosis Sodium (137-145) mmol/L Potassium (3.5-5.1) mmol/L Chloride (98-107) mmol/L Carbon Dioxide (22-30) mmol/L Anion Gap mmol/L BUN (7-17) mg/dL Creatinine (0.52-1.04) mg/dL Est GFR (CKD-EPI)AfAm (>60 ml/min/1.73 sqM) Est GFR (CKD-EPI)NonAf (>60 ml/min/1.73 sqM) Glucose (74-99) mg/dL Calcium (8.4-10.2) mg/dL Total Bilirubin (0.2-1.3) mg/dL AST (14-36) U/L ALT (9-52) U/L Alkaline Phosphatase (38-126) U/L Total Protein (6.3-8.2) g/dL Albumin (3.5-5.0) g/dL Amylase (30-110) U/L Lipase (23-300) U/L Urine Color Yellow Urine Appearance Cloudy H (Clear) Urine pH 5.5 (5.0-8.0) Ur Specific [place] 1.019 (1.001-1.035) Urine Protein Negative (Negative) Urine Glucose (UA) Negative (Negative) Urine Ketones Trace H (Negative) Urine Blood Negative (Negative) Urine Nitrite Negative (Negative) Urine Bilirubin Negative (Negative) Urine Urobilinogen <2.0 (<2.0) mg/dL Ur Leukocyte Esterase Trace H (Negative) Urine RBC 1 (0-5) /hpf Urine WBC 2 (0-5) /hpf Ur Squamous Epith Cells 10 H (0-4) /hpf Urine Bacteria Rare H (None) /hpf Urine Mucus Moderate H (None) /hpf Urine HCG, Qual (Not Detectd) Disposition Clinical Impression: Right upper quadrant abdominal pain Disposition: HOME SELF-CARE Condition: Good Instructions (If sedation given, give patient instructions): Abdominal Pain (ED) Additional Instructions: Please take medications as directed. Please follow-up with surgery in 1-2 days. Return here if patient is having any worsening symptoms. Prescriptions: Famotidine [Pepcid] 20 mg PO BID #30 tablet Ondansetron [Zofran ODT] 4 mg PO Q8HR PRN #15 tab PRN Reason: Nausea Is patient prescribed a controlled substance at d/c from ED?: No Referrals: Kimberli Pedersen MD [STAFF PHYSICIAN] - 1-2 days Time of Disposition: 14:50
[2019-02-06 11:44] LABS: Anisocytosis Slight; Basophils % (A) 0 %; Eosinophils # (A) 0.1 k/uL (0-0.7); Eosinophils % (A) 1 %; HCT 38.7 % (34.0-46.0); HGB 12.8 gm/dL (11.4-16.0); Lymphocytes # (A) 1.1 k/uL (1.0-4.8); Lymphocytes % (A) 13 %; MCH 25.9 pg (25.0-35.0); MCHC 32.9 g/dL (31.0-37.0); MCV 78.7 fL (80.0-100.0); Mean Platelet Volume 7.2; Monocytes # (A) 0.3 k/uL (0-1.0); Monocytes % (A) 3 %; Neutrophils % (A) 81 %; Platelet Count 247 k/uL (150-450); RBC 4.92 m/uL (3.80-5.40); RDW 16.1 % (11.5-15.5); WBC 8.6 k/uL (3.8-10.6)
[2019-02-06 11:49] LABS: Appearance,Urine Cloudy (Clear); Bacteria,Urine Rare /hpf; Bilirubin,Urine Negative (Negative); Blood,Urine Negative (Negative); Color,Urine Yellow; Glucose,Urine (UA) Negative (Negative); Ketones,Urine Trace (Negative); Leukocyte Esterase,Urine Trace (Negative); Mucus,Urine Moderate /hpf; Nitrite,Urine Negative (Negative); PH, Urine 5.5 (5.0-8.0); Protein,Urine Negative (Negative); RBC,Urine 1 /hpf (0-5); Specific Gravity,Urine 1.019 (1.001-1.035); Squamous Epithelial Cell,Urine 10 /hpf (0-4); Urobilinogen,Urine <2.0 mg/dL (<2.0); WBC,Urine 2 /hpf (0-5)
[2019-02-06 11:51] LABS: African American GFR (CKD) >90 (>60 ml/min/1.73 sqM); Albumin 4.7 g/dL (3.5-5.0); Amylase 45 U/L (30-110); Anion Gap 12 mmol/L; Blood Urea Nitrogen 9 mg/dL (7-17); Calcium 9.6 mg/dL (8.4-10.2); Carbon Dioxide 21 mmol/L (22-30); Chloride 108 mmol/L (98-107); Glucose 83 mg/dL (74-99); Sodium 141 mmol/L (137-145); Total Bilirubin 0.8 mg/dL (0.2-1.3); Total Protein 8.9 g/dL (6.3-8.2)
[2019-02-06 11:57] LABS: Potassium 4.6 mmol/L (3.5-5.1)
[2019-02-06 11:58] LABS: ALT 18 U/L (9-52); AST 26 U/L (14-36); Alkaline Phosphatase 55 U/L (38-126)
[2019-02-06] MEDS ORDERED: ONDANSETRON 4 MG/2 ML VIAL IVP STA (12:22)
[2019-02-06] MEDS ORDERED: KETOROLAC 30 MG/ML 1 ML VIAL IVP STA (12:22)
--- NOTE | 2019-02-06 13:19 | US ---
EXAMINATION TYPE: US abdomen limited DATE OF EXAM: 02/06/2019 COMPARISON: NONE CLINICAL HISTORY: Pain. RUQ pain EXAM MEASUREMENTS: Liver Length: 11.7 cm Gallbladder Wall: 0.2 cm CBD: 0.3 cm Right Kidney: 10.3 x 4.1 x 5.0 cm Pancreas: visualized portions wnl. Tail of pancreas obscured by bowel gas. Liver: wnl Gallbladder: No stones seen Evidence for sonographic Lemons's sign: Yes CBD: wnl Right Kidney: No hydronephrosis or masses seen IMPRESSION: 1. Right upper quadrant ultrasound as visualized is unremarkable.
== END 2019-02-06 15:26 | disposition home or self-care (01) ==
LOC: EC 10:29
DX: R10.11 Right upper quadrant pain (principal); R11.2 Nausea with vomiting, unspecified; R19.7 Diarrhea, unspecified; Z87.891 Personal history of nicotine dependence; Z91.048 Other nonmedicinal substance allergy status; Z88.0 Allergy status to penicillin
CPT/HCPCS: 99284; 96374; 96375 ×2; 96361; 36415; 80053; 82150; 83690; 85025; 81001; 81025; 76705; J2405; J1885

== ENCOUNTER 2019-03-03 08:43 | Day surgery (SDC) | payer OTHER ==
[2019-02-28 10:41] VITALS: BMI 23.6
--- NOTE | 2019-03-03 07:21 | P.GSHP ---
History of Present Illness H&P Date: 03/03/19 CHIEF COMPLAINT: Cholecystitis HISTORY OF PRESENT ILLNESS: The patient is a 24-year-old female who presents with history of epigastric including right upper quadrant abdominal pain. She underwent diagnostic studies for her gallbladder. Separately her clinical picture was consistent with cholecystitis. Now she presents for surgical intervention. PAST MEDICAL HISTORY: Please see list PAST SURGICAL HISTORY: Please see list MEDICATIONS: Please see list ALLERGIES: Please see list SOCIAL HISTORY: Please see list FAMILY HISTORY: Pertinent for gallbladder disease REVIEW OF ORGAN SYSTEMS: CONSTITUTIONAL: No reports of fevers or chills. HEENT: Denies any troubles with the vision or hearing. PHYSICAL EXAM: VITAL SIGNS: Afebrile vital signs stable GENERAL: Well-developed pleasant in no acute distress. HEENT: No scleral icterus. Extraocular movements grossly intact. Moist buccal mucosa. NECK: Supple without lymphadenopathy. CHEST: Unlabored respirations. Equal bilateral excursions. CARDIOVASCULAR: Regular rate regular rhythm rhythm. Distal 2+ pulses. ABDOMEN: Soft, nondistended. Tender along the epigastrium and right upper quadrant. MUSCULOSKELETAL: No clubbing, cyanosis, or edema. NEURO: Cranial nerves II to XII within normal limits. No focal or lateralizing signs. PSYCH: Alert and oriented to person, place and time. SKIN: Well-perfused good skin turgor. ASSESSMENT: 1. Epigastric and right upper quadrant abdominal pain 2. Chronic cholecystitis 3. Symptomatic gallstones. PLAN: 1. Will need a robotic cholecystectomy possible open. Benefits and risks were described. 2. Heparin for DVT prophylaxis 5000 units. 3. Antibiotic prophylaxis. Past Medical History Past Medical History: Asthma Additional Past Medical History / Comment(s): anemia in History of Any Multi-Drug Resistant Organisms: None Reported Past Surgical History: No Surgical Hx Reported Past Anesthesia/Blood Transfusion Reactions: No Reported Reaction Additional Past Anesthesia/Blood Transfusion Reaction / Comment(s): no surg. hx Smoking Status: Former smoker - Past Family History Father Family Medical History: Hypertension Additional Family Medical History / Comment(s): lung cancer. Medications and Allergies Home Medications Medication Instructions Recorded Confirmed Type No Known Home Medications 02/28/19 02/28/19 History Allergies Allergy/AdvReac Type Severity Reaction Status Date / Time bee venom protein (honey bee) Allergy Anaphylaxis Verified 02/28/19 10:34 amoxicillin [From Augmentin] AdvReac Swelling Verified 02/28/19 10:34 clavulanic acid AdvReac Swelling Verified 02/28/19 10:34 [From Augmentin]
[~2019-03-03 08:43] MED LIST: HEPARIN SODIUM,PORCINE 5,000 UNIT/ML 1 ML VIAL SQ ONE; HYDROmorphone 0.5 MG/0.5 ML SYRINGE IVP PRN; INDOCYANINE GREEN 25 MG VIAL IV STA; LACTATED RINGERS 1,000 ML IV SCH
[2019-03-03 09:01] VITALS: RESP 16
[2019-03-03] MEDS ORDERED: LIDOCAINE 1% 20 ML VIAL (10MG/ML) FOR IV START SQ ONE (09:15)
[2019-03-03] MEDS ORDERED: LACTATED RINGERS 1,000 ML IV ONE ×3 (09:18→13:46)
[2019-03-03] MEDS: ONDANSETRON 4 MG/2 ML VIAL IVP ONE ×2 (09:33→12:06)
[2019-03-03] MEDS ORDERED: DEXAMETHASONE SOD PHOSPHATE 10 MG/ML 1 ML VIAL IV ONE (09:34)
[2019-03-03] MEDS ORDERED: MIDAZOLAM (PF) 2 MG/2 ML VIAL IV ONE ×2 (09:34→10:28)
[2019-03-03] MEDS ORDERED: SUCCINYLCHOLINE CHLORIDE 100 MG/5 ML SYR IV ONE (10:27)
[2019-03-03] MEDS ORDERED: fentaNYL (PF) 50 MCG/ML 2 ML AMP ONE (10:27)
[2019-03-03] MEDS ORDERED: MIDAZOLAM 2 MG/2 ML VIAL ONE (10:27)
[2019-03-03] MEDS ORDERED: INDOCYANINE GREEN 25 MG VIAL IV ONE (10:27)
[2019-03-03] MEDS ORDERED: NEOSTIGMINE 1 MG/ML 10 ML VIAL ONE (10:27)
[2019-03-03] MEDS ORDERED: PROPOFOL 10 MG/ML 20 ML VIAL IV ONE (10:27)
[2019-03-03] MEDS ORDERED: ROCURONIUM BROMIDE 10 MG/ML 10 ML VIAL IV ONE (10:27)
[2019-03-03] MEDS ORDERED: GLYCOPYRROLATE 0.2 MG/ML 2 ML VIAL ONE (10:27)
[2019-03-03] MEDS ORDERED: LIDOCAINE 1% INJ 10MG/ML (20 ML MDV) ONE (10:27)
[2019-03-03] MEDS ORDERED: BUPIVACAIN-EPI 0.25%-1:200,000 30 ML VIAL SQ ONE (10:35)
--- NOTE | 2019-03-03 11:41 | P.OP ---
Date of Procedure: 03/03/19 Description of Procedure: SURGEON: KIMBERLI PEDERSEN MD PREOPERATIVE DIAGNOSES: 1. Right upper quadrant abdominal pain 2. Leukocytosis 3. Chronic cholecystitis POSTOPERATIVE DIAGNOSES: 1. Right upper quadrant abdominal pain 2. Leukocytosis 3. Chronic cholecystitis OPERATION: Robotic-assisted da Judah Xi laparoscopic cholecystectomy, multiport with FIREFLY ESTIMATED BLOOD LOSS: 5 mL. SPECIMENS REMOVED: Gallbladder. COMPLICATIONS: None. OPERATIVE FINDINGS: 1. Chronic cholecystitis INDICATIONS: The patient is a 24-year-old female who presents with cholelcystitis. Surgical intervention with a laparoscopic cholecystectomy was described at length including injury to the biliary tree, bleeding, infection, need for further surgery. Informed consent was obtained. Robotic assisted laparoscopic approach was described. Benefits and risks of the procedure including but not limited to bleeding, infection, injury to the biliary tree was described. Informed consent was obtained. DESCRIPTION OF PROCEDURE: Patient was brought to the operating room, placed in supine position. After general induction, the abdomen had been prepped and draped in standard sterile fashion. The robotic da Judah XI system was primed. After a timeout protocol was performed, the patient had been prepped and draped in standard sterile fashion. The patient was injected with indocyanine green. A 5 mm 0 degrees laparoscopic trocar entry was performed along the left upper quadrant. The abdomen insufflated to 15 mmHg pressure which was tolerated well. Diagnostic laparoscopy demonstrated no injury to bowel viscera or mesentery. The liver surface was unremarkable. Next, two 8 mm robotic ports were placed along the right upper abdomen. The camera 8-mm port was maintained along the epigastrium. Another 8 mm port was placed along the left upper abdominal wall after exchanging the 5 mm port. Please note that the ports were placed at least 10 to 15 cm away from the target anatomy of the gallbladder. The robot was docked along the left lateral abdomen. The patient was repositioned in reverse Trendelenburg position. Using a grasper for arm 3, a grasper for arm 4, including hook cautery for arm 1, the robotic system was docked and primed as described. Instruments were interchanged by the ophthalmic surgical assistant including hook cautery, Bovie cautery and clip appliers. I had sat at the console. The gallbladder fundus was retracted over the dome of the liver. Initial attention was brought to the infundibulum which was gently retracted in the inferior lateral approach. Using a grasper, the cystic duct including the cystic artery was carefully skeletonized. FIREFLY was used to identify the cystic artery and cystic structures. A critical view of safety was obtained. Large PLASTIC clips were used throughout the entire case. Using a clip plaster lather 2 clips were placed proximally, and 1 clip was placed between the infundibulum and cystic duct and divided using cautery. Next, the cystic artery was similarly clipped and cauterized. Electro-Bovie cautery was used to remove the gallbladder from the hepatic fossa. Hemostasis was checked and found to be adequate. The robot was undocked. I re-scrubbed into the case. Using a 10 mm Endo Catch bag via the left upper quadrant incision, the specimen was removed from the abdominal cavity. All pneumoperitoneum instruments were evacuated from the abdominal cavity. The incisions were reapproximated using 4-0 Monocryl in an interrupted subcuticular fashion. Fascial defects were less than 8 mm in size. Please note along the trocar sites, local anesthetic was placed as a field block prior to insertion of all instruments. Liquid glue was applied to the skin. At the end of the procedure needle, sponge, and instrument count had been verified correct by the traffic survey technician. The patient was transferred to postanesthesia care unit in stable condition. Intraoperative films were shared with the patient's family who were very pleased with the level of care. Plan - Discharge Summary Discharge Rx Participant: No New Discharge Prescriptions: New Ibuprofen [Motrin] 600 mg PO Q8HR PRN #30 tab PRN Reason: Pain Acetaminophen Tab [Tylenol Tab] 500 mg PO Q6H PRN #30 tablet PRN Reason: Pain Discharge Medication List Acetaminophen Tab [Tylenol Tab] 500 mg PO Q6H PRN #30 tablet 03/03/19 [Rx] Ibuprofen [Motrin] 600 mg PO Q8HR PRN #30 tab 03/03/19 [Rx] Follow up Appointment(s)/Referral(s): Kimberli Pedersen MD [STAFF PHYSICIAN] - 03/07/19 Patient Instructions/Handouts: Laparoscopic Cholecystectomy (DC) Activity/Diet/Wound Care/Special Instructions: No lifting over 10 pounds for 10 days, 03/13/19. May shower. No bathtub soaks for 10 days, 03/13/19. Low fat diet. May drive after 48hrs. Use ice on incisions for pain. Discharge Disposition: HOME SELF-CARE
[2019-03-03 11:56] VITALS: TEMP 98.2
[2019-03-03] MEDS: MEPERIDINE 50 MG/ML SYRINGE IVP ONE ×2 (12:05→12:09)
[2019-03-03] MEDS ORDERED: IBUPROFEN 200 MG TAB PO ONE (13:09)
[2019-03-03] MEDS ORDERED: HYDROcodone/APAP 5-325MG 1 EACH TAB PO ONE (13:35)
[2019-03-03 15:05] VITALS: BP 118/73; PULSE 63
== END 2019-03-03 16:08 | disposition home or self-care (01) ==
LOC: OR 08:43
PROVIDERS: ATTEND Surgery Plastic and Reconstructive Surgery
DX: K81.1 Chronic cholecystitis (principal); D72.829 Elevated white blood cell count, unspecified; J45.909 Unspecified asthma, uncomplicated; Z87.891 Personal history of nicotine dependence; Z86.2 Personal history of diseases of the blood and blood-forming organs and certain disorders involving the immune mechanism; Z91.030 Bee allergy status; Z88.0 Allergy status to penicillin; Z80.1 Family history of malignant neoplasm of trachea, bronchus and lung; Z83.79 Family history of other diseases of the digestive system; Z82.49 Family history of ischemic heart disease and other diseases of the circulatory system
CPT/HCPCS: 47562; 81025; 88304; J2250 ×2; J1644; J1100; J2710; J2175; J0690; J2405; J2001; J3010; J0330; J2704; J1170